=== PATIENT | female | born 1985 | race Caucasian/White ===

== ENCOUNTER 2018-03-01 09:58 | Emergency (ER) | payer OTHER ==
[2018-03-01 10:04] VITALS: TEMP 97.7
[2018-03-01 10:31] LABS: PLATELET COUNT 225 10^3/uL (150-400)
[2018-03-01] MEDS ORDERED: fentaNYL 100 MCG/2 ML INJ ONE (10:31)
[2018-03-01] MEDS ORDERED: ONDANSETRON 4 MG/2 ML VIAL ONE (10:31)
[2018-03-01] MEDS ORDERED: fentaNYL 100 MCG/2 ML INJ IVP ONE (10:34)
[2018-03-01] MEDS ORDERED: ONDANSETRON 4 MG/2 ML VIAL IVP ONE (10:34)
[2018-03-01] MEDS ORDERED: NS 1,000 ML IV ONE (10:37)
--- NOTE | 2018-03-01 10:55 | EDPHY ---
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 Time Seen by Provider: 03/01/18 10:55 - Personal History LMP (Females 10-55): 8-14 Days Ago Current Tetanus/Diphtheria Vaccine: Unsure - Medical/Surgical History Hx Asthma: No Hx Chronic Respiratory Disease: No Hx Diabetes: No Hx Cardiac Disease: No Hx Renal Disease: No Hx Cirrhosis: No Hx Alcoholism: No Hx HIV/AIDS: No Hx Splenectomy or Spleen Trauma: No Other PMH: denies - Social History Smoking Status: Never smoked Constitutional: Initial Vital Signs Temperature (C) 36.5 C 03/01/18 10:01 Heart Rate 88 03/01/18 10:01 Respiratory Rate 17 03/01/18 10:01 Blood Pressure 121/90 H 03/01/18 10:01 O2 Sat (%) 96 03/01/18 10:01 O2 Delivery Mode Room Air Allergies/Adverse Reactions: Penicillins Allergy (Verified 03/01/18 10:01) Hives Home Medications: Medication Instructions Recorded NK [No Known Home Meds] 03/01/18 Medical Decision Making - Diagnostics Imaging Results: Imaging Impressions Abdomen CT 03/01/18 11:04 Impression: 1. Constipation. 2. No CT evidence of appendicitis, abscess or bowel obstruction. 3. Small amount of free fluid in the right side of the pelvis without adnexal masses. Findings and recommendations discussed with Emergency Department physician, Dr. Gilberot Arias at 1216 hours on March 01, 2018. Final report concurs with initial preliminary interpretation. ED Course/Re-evaluation: CHIEF COMPLAINT: Nausea vomiting right lower quadrant pain HISTORY OF PRESENT ILLNESS: Patient was woken from sleep at 5:30 a.m. This morning with right lower quadrant abdominal pain nausea and vomiting. She states that the pain is significant and that bumps and walking hurt her right lower quadrant. The pain started around her belly button and then moved to the right. She denies any diarrhea. She states that she felt fine when she went to bed last night. She denies any recent travel or any unusual foods. She has never had any abdominal surgeries. REVIEW OF SYSTEMS: A 10 point review of systems was performed and is negative with the exception of the elements mentioned in the history of present illness. PHYSICAL EXAM: HR, BP, O2 Sat, RR. Temp noted General Appearance: Alert, well hydrated, appropriate, and non-toxic appearing. Head: Atraumatic without scalp tenderness or obvious injury Eyes: Pupils equal, round, reactive to light and accommodation, EOMI, no trauma , no injection. Ears: Clear bilaterally, no perforation, normal landmarks Nose: Atraumatic, no rhinorrhea, clear. Throat: There is no erythema or exudates, no lesions, normal tonsils, mucus membranes moist. Neck: Supple, 2+ carotid upstroke, nontender, no lymphadenopathy. Respiratory: No retractions, no distress, no wheezes, and no accessory muscle use. Lungs are clear to auscultation bilaterally. Cardiovascular: Regular rate and rhythm, no murmurs, rubs, or gallops. Bilateral carotid, radial, dorsalis pedis, and posterior tibial pulses intact. Good capillary refill all extremities. Gastrointestinal: Abdomen is soft, significant tenderness in the right lower quadrant, non-distended, no masses, no rebound, no guarding, no peritoneal signs. Musculoskeletal: Normal active ROM of all extremities, atraumatic. Neurological: Alert, appropriate, and interactive. The patient has normal DTRs and non-focal cranial nerves, motor, sensory, and cerebellar exam. Skin: No rashes, good turgor, no nodules on palpation. Past medical history: None Past surgical history: None Family history: Noncontributory Social history: , employed, does not abuse tobacco drugs or alcohol DIAGNOSTICS/PROCEDURES/CRITICAL CARE TIME: Study: CT of the abdomen and pelvis with IV contrast Indication: Right lower quadrant abdominal pain Results: CT scan of the abdomen and pelvis was obtained. The results of the study are normal. The study was read by the radiologist, . I viewed the images myself on the PACS system. DIFFERENTIAL DIAGNOSIS: The differential diagnosis for the patient's abdominal pain included but was not limited to ovarian cyst, pelvic inflammatory disease, ovarian torsion, urinary tract infection, ectopic , cholecystitis, and appendicitis. MEDICAL DECISION MAKING: This patient has a fairly classic story for appendicitis. She has pain that woke her from sleep at 5:30 a.m. This morning with nausea and vomiting. She has no other gastrointestinal symptoms. Pain started periumbilically and then moved to the right lower quadrant. Laboratory studies and CT scan are pending. 12:33 PM- CT is negative for acute process. I feel she is safe to be discharged. I reassessed the patient and informed her of the results of her workup. Follow-up instructions and return precautions given. She agrees to this course of action. - Data Points Laboratory Results: Laboratory Results 03/01/18 10:15 03/01/18 10:15 03/01/18 03/01/18 03/01/18 10:15 10:15 10:06 WBC 11.06 10^3/uL H 10^3/uL (3.80-9.50) RBC 4.02 10^6/uL L 10^6/uL (4.18-5.33) Hgb 13.0 g/dL g/dL (12.6-16.3) Hct 38.1 % % (38.0-47.0) MCV 94.8 fL fL (81.5-99.8) MCH 32.3 pg pg (27.9-34.1) MCHC 34.1 g/dL g/dL (32.4-36.7) RDW 11.9 % % (11.5-15.2) Plt Count 225 10^3/uL 10^3/uL (150-400) MPV 10.6 fL fL (8.7-11.7) Neut % (Auto) 85.3 % H % (39.3-74.2) Lymph % (Auto) 9.2 % L % (15.0-45.0) [place] % (Auto) 4.4 % L % (4.5-13.0) Eos % (Auto) 0.1 % L % (0.6-7.6) Baso % (Auto) 0.5 % % (0.3-1.7) Nucleat RBC Rel Count 0.0 % % (0.0-0.2) Absolute Neuts (auto) 9.44 10^3/uL H 10^3/uL (1.70-6.50) Absolute Lymphs (auto) 1.02 10^3/uL 10^3/uL (1.00-3.00) Absolute Monos (auto) 0.49 10^3/uL 10^3/uL (0.30-0.80) Absolute Eos (auto) 0.01 10^3/uL L 10^3/uL (0.03-0.40) Absolute Basos (auto) 0.05 10^3/uL 10^3/uL (0.02-0.10) Absolute Nucleated RBC 0.00 10^3/uL 10^3/uL (0-0.01) Immature Gran % 0.5 % % (0.0-1.1) Immature Gran # 0.05 10^3/uL 10^3/uL (0.00-0.10) Sodium 141 mEq/L mEq/L (135-145) Potassium 3.6 mEq/L mEq/L (3.5-5.2) Chloride 104 mEq/L mEq/L (97-110) Carbon Dioxide 24 mEq/l mEq/l (22-31) Anion Gap 13 mEq/L mEq/L (8-16) BUN 10 mg/dL mg/dL (7-23) Creatinine 0.5 mg/dL L mg/dL (0.6-1.0) Estimated GFR > 60 Glucose 129 mg/dL H mg/dL (70-100) Calcium 9.1 mg/dL mg/dL (8.5-10.4) Urine Color YELLOW Urine Appearance CLEAR Urine pH 7.0 (5.0-7.5) Ur Specific [place] 1.024 (1.002-1.030) Urine Protein NEGATIVE (NEGATIVE) Urine Ketones 2+ H (NEGATIVE) Urine Blood NEGATIVE (NEGATIVE) Urine Nitrate NEGATIVE (NEGATIVE) Urine Bilirubin NEGATIVE (NEGATIVE) Urine Urobilinogen NEGATIVE EU EU (0.2-1.0) Ur Leukocyte Esterase NEGATIVE (NEGATIVE) Urine RBC 1-3 /hpf /hpf (0-3) Urine WBC 1-3 /hpf /hpf (0-3) Ur Epithelial Cells TRACE /lpf /lpf (NONE-1+) Urine Mucus 1+ /lpf /lpf (NONE-1+) Urine Glucose NEGATIVE (NEGATIVE) Medications Given: Discontinued Medications Fentanyl (Sublimaze) 50 mcg IVP EDNOW ONE Stop: 03/01/18 10:35 Last Admin: 03/01/18 10:36 Dose: 50 mcg Hydromorphone HCl (Dilaudid) 1 mg IVP EDNOW ONE Stop: 03/01/18 10:59 Last Admin: 03/01/18 11:00 Dose: 1 mg Sodium Chloride (Ns) 1,000 mls @ 3,000 mls/hr IV ONCE ONE Stop: 03/01/18 10:56 Last Admin: 03/01/18 10:39 Dose: 1,000 mls Ondansetron HCl (Zofran) 4 mg IVP EDNOW ONE Stop: 03/01/18 10:35 Last Admin: 03/01/18 10:36 Dose: 4 mg Departure - Departure Disposition: Home, Routine, Self-Care Clinical Impression: Abdominal pain Qualifiers: Abdominal location: generalized Qualified Code(s): R10.84 - Generalized abdominal pain Condition: Good Instructions: Acute Abdominal Pain (ED) Additional Instructions: 1. Follow up with your primary care provider if symptoms do not improve in 2 to 3 days. 2. Return to the emergency department for worsening of condition. Referrals: Clinton Parker MD [[facility] [place] - As per Instructions
[2018-03-01] MEDS ORDERED: HYDROmorphONE/DILAUDID 2 MG/ML INJ ONE (10:56)
[2018-03-01] MEDS ORDERED: HYDROmorphONE/DILAUDID 2 MG/ML INJ IVP ONE (10:58)
[2018-03-01] MEDS ORDERED: IOPAMIDOL (ISOVUE-300) 100 ML BTL ONE (11:17)
[2018-03-01 12:29] VITALS: BP 103/54; PULSE 83; RESP 18; O2SAT 98
== END 2018-03-01 13:01 | disposition home or self-care (01) ==
DX: R10.84 Generalized abdominal pain (principal); R11.10 Vomiting, unspecified; E86.0 Dehydration
CPT/HCPCS: 96374; J1170; J2405; J3010; Q9967